=== PATIENT | female | born 1945 | race Caucasian/White ===

== ENCOUNTER 2021-01-29 23:06 | Observation (INO) | payer MEDICARE, MEDICAID ==
[2021-01-30] MEDS ORDERED: hydrALAZINE 20 MG/ML VIAL SLOW IVP PRN (01:55)
[2021-01-30] MEDS ORDERED: Ondansetron PF 4 MG/2 ML Vial IVP PRN (01:55)
[2021-01-30] MEDS ORDERED: Dextrose 50% Abboject 50 ML SYRINGE SLOW IVP PRN (02:03)
[2021-01-30] MEDS ORDERED: Dextrose 5% in Water 1,000 ML IV PRN (02:03)
[2021-01-30] MEDS ORDERED: Aspirin Chewable 81 MG TAB ONE ×2 (02:42→11:17)
[2021-01-30] MEDS ORDERED: Aspirin Chewable 81 MG TAB PO SCH (02:45)
[2021-01-30] MEDS ORDERED: traMADol HCl 50 MG TAB PO SCH (02:45)
[2021-01-30 03:43] LABS: SARS-CoV-2 NAA Rapid Test Not Detected (NotDetected)
[2021-01-30] MEDS ORDERED: Acetaminophen 325 MG TAB ONE (04:14)
[2021-01-30] MEDS: Acetaminophen 325 MG TAB PO PRN ×2 (04:17→17:21)
[2021-01-30 04:30] LABS: #Basophils 0.1 thou/uL (0.0-0.2); #Eosinphils 0.1 thou/uL (0.0-0.7); #Lymphocytes 2.1 thou/uL (1.20-3.40); #Monocytes 0.7 thou/uL (0.11-0.59); #Neutrophils 3.5 thou/uL (1.40-6.50); %Basophils 1.5 % (0.0-1.0); %Eosinophils 1.2 % (0.0-10.0); %Monocytes 11.2 % (0.0-10.0); %Neutrophils 54.1 % (42.0-75.0); Hemoglobin 10.9 g/dL (12.0-16.0); Mean Corpuscular HGB CONC 33.6 g/dL (32.0-36.0); Mean Corpuscular Hemoglobin 33.4 pg (27.0-31.0); Mean Corpuscular Volume 99.4 fL (78.0-98.0); Mean Platelet Volume 6.8 fL (7.4-10.4); Platelet Count 228 thou/uL (130-400); RBC Distribution Width 14.3 % (11.5-14.5); Red Blood Cell (RBC) Count 3.27 mill/uL (4.20-5.40); White Blood Cell (WBC) Count 6.5 thou/uL (4.8-10.8)
[2021-01-30 04:50] LABS: Anion Gap 7 mmol/L (10-20); BUN (Urea Nitrogen) 18 mg/dL (9.8-20.1); Calc. Creatinine Clearance 52 mL/min (70-130); Calcium 8.4 mg/dL (7.8-10.44); Carbon Dioxide 29 mmol/L (23-31); Cardiac Risk 1.8 (Less than 4.5); Chloride 106 mmol/L (98-107); Cholesterol 156 mg/dl (< 200 Desired); Glucose 83 mg/dL (83-110); HDL Cholesterol 88 mg/dL (>60 Neg Risk); LDL Cholesterol, Calculated 59 mg/dL; Potassium 4.3 mmol/L (3.5-5.1); Sodium 138 mmol/L (136-145); Triglycerides 45 mg/dL (Less than 150)
[2021-01-30] MEDS: Mometasone 200 MCG/Formoterol 5 MCG 120 PUFF INHALER INH SCH ×2 (08:05→19:30)
[2021-01-30] MEDS: Aspirin 81 mg Enteric Coated Tablet PO SCH (10:00)
[2021-01-30 16:38] VITALS: BMI 26.3
[2021-01-30] MEDS ORDERED: Nicotine 7 MG PATCH TD SCH (17:00)
[2021-01-30] MEDS: Oxymetazoline HCl 0.05% (30 ML BOT) NS PRN (20:53)
[2021-01-30] MEDS: Calcium Carbonate 500 MG ChewTAB PO SCH (20:54)
[2021-01-30] MEDS ORDERED: Atorvastatin Calcium 40 MG TAB PO SCH (21:00)
[2021-01-31 05:55] LABS: #Basophils 0.1 thou/uL (0.0-0.2); #Eosinphils 0.1 thou/uL (0.0-0.7); #Lymphocytes 1.7 thou/uL (1.20-3.40); #Monocytes 0.5 thou/uL (0.11-0.59); #Neutrophils 2.7 thou/uL (1.40-6.50); %Basophils 1.7 % (0.0-1.0); %Eosinophils 1.5 % (0.0-10.0); %Lymphocytes 33.8 % (21.0-51.0); Mean Corpuscular HGB CONC 32.9 g/dL (32.0-36.0); Mean Platelet Volume 6.8 fL (7.4-10.4); Platelet Count 238 thou/uL (130-400); RBC Distribution Width 14.1 % (11.5-14.5); Red Blood Cell (RBC) Count 3.64 mill/uL (4.20-5.40)
[2021-01-31 06:09] LABS: Anion Gap 13 mmol/L (10-20); BUN (Urea Nitrogen) 14 mg/dL (9.8-20.1); Calc. Creatinine Clearance 62 mL/min (70-130); Calcium 8.8 mg/dL (7.8-10.44); Carbon Dioxide 25 mmol/L (23-31); Chloride 106 mmol/L (98-107); Glucose 95 mg/dL (83-110); Potassium 4.1 mmol/L (3.5-5.1); Sodium 140 mmol/L (136-145)
[2021-01-31] MEDS: Mometasone 200 MCG/Formoterol 5 MCG 120 PUFF INHALER INH SCH (06:44)
[2021-01-31] MEDS: Calcium Carbonate 500 MG ChewTAB PO SCH ×2 (08:51→14:22)
[2021-01-31] MEDS: Aspirin 81 mg Enteric Coated Tablet PO SCH (08:51)
[2021-01-31] MEDS ORDERED: Apixaban 5 MG TAB PO SCH ×3 (09:00→21:00)
[2021-01-31] MEDS ORDERED: Fluticasone Propionate Nasal Spray 16 gm Bottle NASAL SCH (09:00)
[2021-01-31] MEDS: Oxymetazoline HCl 0.05% (30 ML BOT) NS PRN (10:48)
[2021-01-31] MEDS: Acetaminophen 325 MG TAB PO PRN (10:54)
[2021-01-31] MEDS ORDERED: hydrOXYzine 25 MG TAB PO PRN (11:13)
[2021-01-31 12:36] LABS: Free T4 (Free Thyroxine) 0.68 ng/dL (0.70-1.48); Thyroid Stimulating Hormone 0.3586 uIU/mL (0.35-4.94)
[2021-01-31 12:43] LABS: Bacteria/HPF None Seen HPF (None Seen); Bilirubin Negative (Negative); Blood, Urine Negative (Negative); Clarity Clear (Clear); Glucose, Urine (Dipstick) Normal (Negative); Ketone, Urine Negative (Negative); Leukocyte Negative Leu/uL (Negative); Nitrite Negative (Negative); Protein, Urine (Dipstick) Negative (Neg-Trace); Specific Gravity, Urine 1.014 (1.002-1.036); Squamous Epithelial 0-3 HPF (0-3); Urobilinogen Normal mg/dL (Less than 2); WBC/HPF 0-3 HPF (0-3)
[2021-01-31] MEDS ORDERED: Amlodipine 5 MG TAB PO SCH ×2 (12:45→13:00)
[2021-01-31] MEDS ORDERED: Aspirin 81 mg Enteric Coated Tablet PO SCH (12:45)
[2021-01-31 12:47] LABS: Urine Culture Reflex No No
[2021-01-31] MEDS ORDERED: Losartan 25 MG TAB PO SCH (13:00)
[2021-01-31] MEDS ORDERED: DULoxetine 30 MG CAP PO SCH (13:00)
[2021-01-31] MEDS ORDERED: cycloSPORINE 0.05% Ophthalmic Droperette EA EYE SCH ×2 (13:00→21:00)
[2021-01-31] MEDS ORDERED: Bupropion 150 MG SR TAB PO SCH (13:00)
[2021-01-31] MEDS ORDERED: Ferrous Sulfate 325 MG TAB PO SCH ×3 (13:00→21:00)
[2021-01-31] MEDS ORDERED: Gabapentin 300 MG CAP PO SCH ×2 (15:00)
[2021-01-31] MEDS ORDERED: Primidone 50 MG TAB PO SCH (15:00)
[2021-01-31 15:29] VITALS: BP 163/92; TEMP 98.1
[2021-01-31] MEDS ORDERED: Mometasone 200 MCG/Formoterol 5 MCG 120 PUFF INHALER INH SCH ×2 (18:30)
[2021-01-31] MEDS ORDERED: Atorvastatin Calcium 20 MG TAB PO SCH (21:00)
[2021-02-01] MEDS ORDERED: Bupropion 150 MG SR TAB PO SCH ×2 (09:00)
[2021-02-01] MEDS ORDERED: Losartan 25 MG TAB PO SCH ×2 (09:00)
[2021-02-01] MEDS ORDERED: BUPROPION HCL 150 MG PO SCH ×2 (09:00)
[2021-02-01] MEDS ORDERED: Amlodipine 5 MG TAB PO SCH (09:00)
[2021-02-01] MEDS ORDERED: DULoxetine 30 MG CAP PO SCH ×2 (09:00)
== END 2021-01-31 17:06 | disposition home or self-care (01) ==
LOC: ERS 23:06 → ERHOLD 01-30 00:36 → 2SE 01-30 14:59
PROVIDERS: ADMIT Internal Medicine; ATTEND Internal Medicine
DX: I65.23 Occlusion and stenosis of bilateral carotid arteries (principal); I10 Essential (primary) hypertension; J44.9 Chronic obstructive pulmonary disease, unspecified; J32.9 Chronic sinusitis, unspecified; D64.9 Anemia, unspecified; E04.1 Nontoxic single thyroid nodule; F17.210 Nicotine dependence, cigarettes, uncomplicated; Z79.01 Long term (current) use of anticoagulants; Z79.899 Other long term (current) drug therapy; Z95.0 Presence of cardiac pacemaker; Z20.822 Contact with and (suspected) exposure to COVID-19
CPT/HCPCS: 70450; 80048 ×2; 80061; 81001; 82962 ×2; 84439; 84443; 85025 ×2; 94640 ×2; 95712; 95819; 95957; 99285; G0378 ×3; U0002; 36415; 36416

== ENCOUNTER 2021-02-20 00:07 | Emergency (ER) | payer MEDICARE, MEDICAID ==
[2021-02-20] MEDS ORDERED: Morphine 4 MG/ML VIAL ONE (00:27)
[2021-02-20] MEDS ORDERED: Ondansetron PF 4 MG/2 ML Vial ONE (00:27)
[2021-02-20 00:57] LABS: #Basophils 0.1 thou/uL (0.0-0.2); #Eosinphils 0.2 thou/uL (0.0-0.7); #Lymphocytes 1.4 thou/uL (1.20-3.40); #Monocytes 0.9 thou/uL (0.11-0.59); #Neutrophils 7.7 thou/uL (1.40-6.50); %Basophils 0.5 % (0.0-1.0); %Eosinophils 2.3 % (0.0-10.0); %Lymphocytes 13.5 % (21.0-51.0); %Neutrophils 74.7 % (42.0-75.0); Hemoglobin 10.5 g/dL (12.0-16.0); Mean Corpuscular HGB CONC 33.6 g/dL (32.0-36.0); Mean Corpuscular Hemoglobin 33.6 pg (27.0-31.0); Mean Corpuscular Volume 99.8 fL (78.0-98.0); Mean Platelet Volume 7.6 fL (7.4-10.4); Platelet Count 171 thou/uL (130-400); Red Blood Cell (RBC) Count 3.13 mill/uL (4.20-5.40); White Blood Cell (WBC) Count 10.3 thou/uL (4.8-10.8)
[2021-02-20 01:14] LABS: ALT (SGPT) 11 U/L (8-55); AST (SGOT) 11 U/L (5-34); Albumin 3.6 g/dL (3.4-4.8); Alkaline Phosphatase 104 U/L (40-110); Anion Gap 13 mmol/L (10-20); BUN (Urea Nitrogen) 14 mg/dL (9.8-20.1); Bilirubin, Total 0.2 mg/dL (0.2-1.2); Calc. Creatinine Clearance 0 mL/min (70-130); Calcium 8.7 mg/dL (7.8-10.44); Carbon Dioxide 22 mmol/L (23-31); Chloride 106 mmol/L (98-107); Globulin 2.6 g/dL (2.4-3.5); Glucose 95 mg/dL (83-110); Potassium 4.9 mmol/L (3.5-5.1); Protein, Total 6.2 g/dL (5.8-8.1); Sodium 136 mmol/L (136-145)
[2021-02-20] MEDS ORDERED: Ketorolac Tromethamine 30 MG/ML VIAL ONE (01:24)
[2021-02-20] MEDS ORDERED: Acetaminophen/Codeine 30-300mg Tablet ONE (03:59)
[2021-02-20] MEDS ORDERED: diphenhydrAMINE 50 MG/ML VIAL ONE (04:39)
[2021-02-20] MEDS ORDERED: Iopamidol-370 76% 500 ML 1 ML ONE (09:51)
== END 2021-02-20 05:17 | disposition home or self-care (01) ==
LOC: ERS 00:07
DX: R09.1 Pleurisy (principal); E78.5 Hyperlipidemia, unspecified; K21.9 Gastro-esophageal reflux disease without esophagitis; I10 Essential (primary) hypertension; J44.9 Chronic obstructive pulmonary disease, unspecified; F17.210 Nicotine dependence, cigarettes, uncomplicated; Z79.899 Other long term (current) drug therapy
CPT/HCPCS: 36415; 71045; 71275; 80053; 84484; 85025; 93005; 96374; 96375; J1200; J1885; J2270; J2405; Q9967